=== PATIENT | female | born 1970 | race Hispanic/Latino ===

== ENCOUNTER 2018-05-04 17:53 | Emergency (ER) | payer SELFPAY ==
[~2018-05-04] VITALS: Ht 157.5 cm; Wt 90.7 kg
[2018-05-04] MEDS ORDERED: METOCLOPRAMIDE HCL 10 MG/2ML VIAL IV ONE (18:30)
[2018-05-04] MEDS ORDERED: KETOROLAC TROMETHAMINE 30 MG/ML VIAL IV STA (18:30)
[2018-05-04] MEDS ORDERED: SODIUM CHLORIDE 0.9% 1000ML 1,000 ML IV STA (18:30)
[2018-05-04] MEDS ORDERED: DIPHENHYDRAMINE HCL INJ 50 MG/ML VIAL IV ONE (18:30)
[2018-05-04 19:02] LABS: BASOPHILS % 0.4 % (0.0-1.0); EOSINOPHILS # (AUTO) 0.1 (0.0-0.4); EOSINOPHILS % 1.1 % (0.0-6.0); HEMATOCRIT 38.9 % (34.2-44.1); HEMOGLOBIN 13.3 g/dL (12.0-16.0); LYMPHOCYTES # (AUTO) 2.6 (1.0-3.2); LYMPHOCYTES % 26.1 % (18.0-39.1); MEAN CORPUSCULAR HEMOGLOBIN 30.9 pg (28-32); MEAN CORPUSCULAR HGB CONC 34.2 g/dL (31-35); MEAN CORPUSCULAR VOLUME 90.3 fL (81-99); MONOCYTES # (AUTO) 0.7 (0.2-0.8); MONOCYTES % 6.9 % (4.4-11.3); NEUTROPHILS # (AUTO) 6.6 (2.1-6.9); PLATELET COUNT 300 x10e3/uL (140-360); RED BLOOD COUNT 4.31 x10e6/uL (3.6-5.1); RED CELL DISTRIBUTION WIDTH 13.9 % (11.7-14.4)
[2018-05-04 19:18] LABS: ALANINE AMINOTRANSFERASE 10 IU/L (0-55); ALBUMIN 3.7 g/dL (3.5-5.0); ALBUMIN/GLOBULIN RATIO 1.1 (0.8-2.0); ALKALINE PHOSPHATASE 74 IU/L (40-150); ANION GAP 10.9 mmol/L (8-16); BLOOD UREA NITROGEN 16 mg/dL (7-26); BUN/CREATININE RATIO 22 (6-25); CALCIUM 9.1 mg/dL (8.4-10.2); CARBON DIOXIDE 24 mmol/L (22-29); CHLORIDE 106 mmol/L (98-107); CREATINE KINASE 60 IU/L (29-168); CREATININE, SERUM 0.72 mg/dL (0.57-1.11); EST GLOMERULAR FILTRATION RATE > 60 ML/MIN (60-); GLUCOSE 100 mg/dL (74-118); POTASSIUM 3.9 mmol/L (3.5-5.1); SODIUM 137 mmol/L (136-145)
[2018-05-04 19:34] LABS: BILIRUBIN,URINE NEGATIVE (NEGATIVE); CLARITY,URINE CLEAR (CLEAR); COLOR,URINE YELLOW (YELLOW); KETONES,URINE NEGATIVE (NEGATIVE); LEUKOCYTE ESTERASE ,URINE NEGATIVE (NEGATIVE); NITRITE,URINE NEGATIVE (NEGATIVE); PROTEIN,URINE DIPSTICK NEGATIVE (NEGATIVE); URINE UROBILINOGEN 0.2 mg/dL (0.2 - 1)
[2018-05-04 19:43] LABS: BACTERIA,URINE MANY /HPF; EPITHELIAL CELLS,URINE FEW /LPF; RBC,URINE 0-5 /HPF (0-5)
[2018-05-04] MEDS ORDERED: SODIUM CHLORIDE 0.9% 50ML 0 ML ONE (19:59)
[2018-05-04] MEDS ORDERED: IOPAMIDOL 370 MG/ML 200 ML INFUS..BTL INJ ONE (20:00)
--- NOTE | 2018-05-04 20:01 | Diagnostic Imaging Report ---
EXAMINATION: Head CT without contrast. HISTORY:Migraine headache. COMPARISON:None. TECHNIQUE: Multidetector axial images were obtained from the foramen magnum to the vertex without contrast. The images were reconstructed using brain and bone algorithms. Thin section brain images were reformatted into coronal and sagittal planes. Intravenous contrast: None IMAGE QUALITY: Acceptable. FINDINGS: Skull/scalp: No lytic or blastic. lesions. No surgical changes. Parenchyma: No abnormal density. No acute hemorrhage, mass or acute major vascular territorial infarct. Arteries: No density suggestive of thrombosis. Dural sinuses: No abnormal density suggestive of thrombosis. Ventricles: No hydrocephalus or displacement. Extra-axial spaces: No abnormal density. Brain volume: Normal for age. Craniocervical junction: No mass, Chiari malformation, or basilar invagination. Sella: No mass. Paranasal/mastoid sinuses: Imaged portions unremarkable. IMPRESSION: No intracranial abnormality. Signed by: Dr. Fauzia Patel M.D. on 05/04/2018 7:58 PM
[2018-05-04] MEDS ORDERED: HYDROCODONE/APAP 10MG-325MG TAB PO ONE (20:30)
[2018-05-04] MEDS ORDERED: MORPHINE SULFATE 2 MG/ML SYR IV ONE (20:45)
[2018-05-04] MEDS ORDERED: NIFEDIPINE 10 MG CAP PO STA (21:05)
[2018-05-04] MEDS ORDERED: ESGIC CAPSULE1 EACH PO (21:15)
[2018-05-04 21:18] VITALS: BP 140/84
== END 2018-05-04 21:30 | disposition home or self-care (01) ==
LOC: ER 17:53
DX: G43.019 Migraine without aura, intractable, without status migrainosus (principal); R11.2 Nausea with vomiting, unspecified
CPT/HCPCS: 36415; 70450; 80053; 81001; 82550; 82553; 84484; 84702; 85025; 93005; 96374; 99284; J1200; J1885; J2270; J2765; J7030; Q9967

== ENCOUNTER 2018-10-01 16:10 | Emergency (ER) | payer OTHER ==
[~2018-10-01] VITALS: Ht 157.5 cm; Wt 82.1 kg
[~2018-10-01 16:10] MED LIST: ESGIC CAPSULE1 EACH PO
--- OUTSIDE RECORDS SUMMARY | 2018-10-01 16:13 | XMS REPORT ---
Author Author [facility] Address Unknown Phone Unavailable Care Team Providers Care Dag Sprayer Name Role Phone Sebastian RODRIGUES Unavailable Unavailable Problems This patient has no known problems. Allergies, Adverse Reactions, Alerts This patient has no known allergies or adverse reactions. Medications This patient has no known medications. Results Test Description Test Time Test Comments Text Results Atomic Results Result Comments CT BRAIN WO 2018-05-04 19:53:00 [facility] [address] [id number] Patient Name: ORQUIDEA ALBERTS MR #: [id number] : 1970 Age/Sex: 47/F Req #: [id number] [facility] Physician: Ordered by: MIRIAM CARMONA CODE OFFICIAL Report #: [id number] Location: ER Room/Bed: Procedure: [id number] CT/CT BRAIN WO Exam Date: 05/04/18 Exam Time: 1929 REPORT STATUS: Signed ADDENDUM #1 Dose modulation, iterative reconstruction, and/or weight based adjustment of the mA/kV was utilized to reduce the radiation dose to as low as reasonably achievable. Signed by: Dr. Fauzia Patel M.D. on 06/04/2018 1:56 AM ORIGINAL REPORT EXAMINATION: Head CT without contrast. HISTORY:Migraine headache. COMPARISON:None. TECHNIQUE: Multidetector axial images were obtained from the foramen magnum to the vertex without contrast. The images were reconstructed using brain and bone algorithms. Thin section brain images were reformatted into coronal and sagittal planes. Intravenous contrast: None IMAGE QUALITY: Acceptable. FINDINGS: Skull/scalp: No lytic or blastic. lesions. No surgical changes. Parenchyma: No abnormal density. No acute hemorrhage, mass or acute major vascular territorial infarct. Arteries: No density suggestive of thrombosis. Dural sinuses: No abnormal density suggestive of thrombosis. Ventricles: No hydrocephalus or displacement. Extra-axial spaces: No abnormal density. Brain volume: Normal for age. Craniocervical junction: No mass, Chiari malformation, or basilar invagination. Sella: No mass. Paranasal/mastoid sinuses: Imaged portions unremarkable. IMPRESSION: No intracranial abnormality. Signed by: Dr. Fauzia Patel M.D. on 05/04/2018 7:58 PM Dictated By: FAUZIA PATEL MD [id number] Transcribed By: DRISS on 05/04/181957 COPY TO: MIRIAM CARMONA NP
[2018-10-01] MEDS ORDERED: HYDROCODONE/APAP 10MG-325MG TAB PO NR (17:15)
[2018-10-01] MEDS ORDERED: CYCLOBENZAPRINE HCL 10 MG TAB PO NR (17:15)
[2018-10-01] MEDS ORDERED: DEXAMETHASONE SOD PHOS 10 MG/1 ML VIAL INJ NR (17:15)
[2018-10-01] MEDS ORDERED: KETOROLAC TROMETHAMINE 60 MG/2 ML VIAL IM NR (17:15)
[2018-10-01 18:23] VITALS: BP 158/91
== END 2018-10-01 18:20 | disposition home or self-care (01) ==
LOC: RAD 16:10 → ER 18:20
DX: M54.42 Lumbago with sciatica, left side (principal)
CPT/HCPCS: 99282; J1100; J1885

== ENCOUNTER 2019-06-26 10:43 | Emergency (ER) | payer OTHER ==
[~2019-06-26] VITALS: Ht 157.5 cm; Wt 82.1 kg
--- OUTSIDE RECORDS SUMMARY | 2019-06-26 10:47 | XMS REPORT | CCD ---
Author Author Auto Generated Organization [facility] Address Unknown Phone Unavailable Care Team Providers Care Health Workers Name Role Phone Jaswant Ruggiero CP Allergies, Adverse Reactions, Alerts Substance Reaction Status Vicodin Active Problem List Condition Effective Dates Status Headache Active Medications Medication Instructions Start Date End Date Status Fioricet oral tablet 1 tab, PO, Q4H, PRN, 30 tab, Pain, 10/03/2012 Ordered Substitution Allowed, Maintenance Motrin 800 mg oral 800 mg, 1 tab, PO, Q8H, PRN, Take 10/03/2012 Ordered tablet with food, 30 tab, Pain, Substitution Allowed Take with food Ceftin 500 mg oral 500 mg, 1 tab, PO, BID, 20 tab, 10/03/2012 Ordered tablet Substitution Allowed ketorolac 60 mg, Route: IM, Drug form: INJ, 10/03/2012 10/03/2012 Completed ONCE, Dosing Weight 81.818, kg, Priority: STAT, Start date: 10/03/12 12:48:00, Stop date: 10/03/12 12:48:00 Tetanus-Diphtheria 0.5 ml, Route: IM, ONCE, STAT, 04/07/2010 04/07/2010 Completed Toxoids, Adult Start date: 04/07/10 19:08:00, Stop date: 04/07/10 19:08:00 Immunizations Vaccine Date Status tetanus-diphtheria toxoids 04/07/2010 Auth (Verified) Vital Signs Most recent to oldest [Reference Range]: 1 Height 154.94 cm (10/03/2012 11:55:00) Weight 81.818 kg (10/03/2012 11:55:00)
--- OUTSIDE RECORDS SUMMARY | 2019-06-26 10:47 | XMS REPORT | Summary of Care ---
Author Author [facility] Organization [facility] Address Unknown Phone Unavailable Encounter HQ Jennyferr_karli(FIN) [id number] Date(s): 03/23/19 - 03/23/19 [facility] [address] [place] [phone] Discharge Disposition: Home or Self Care Attending Physician: Collin Romo MD Referring Physician: Collin Romo MD Vital Signs No data available for this section Problem List Condition Effective Dates Status Health Status Informant Headache(Confirmed) Active Allergies, Adverse Reactions, Alerts Substance Reaction Severity Status Vicodin Active Medications No data available for this section Results No data available for this section Immunizations Given and Recorded Vaccine Date Status Refusal Reason tetanus-diphtheria toxoids 04/07/10 Given Procedures No data available for this section Social History No data available for this section Assessment and Plan No data available for this section
--- OUTSIDE RECORDS SUMMARY | 2019-06-26 10:47 | XMS REPORT | Continuity of Care Document ---
Author Author [employer] [facility] Address Unknown Phone Unavailable Care Team Providers Care Assistive Technology Specialist Name Role Phone [facility] Information [place] Unavailable Unavailable Problems Problem Status Onset Date Classification Date Reported Comments Source M25.571 - PAIN IN RIGHT ANKLE AND JOINTS Active 03/23/2019 [facility] COLD,COUGH, HEAD CHEST PAIN, CANT MAMTA Active 10/03/2012 [facility] Headache Active Problem 10/05/2012 [facility] Headache (finding) Active Problem 03/25/2019 [facility] Medications Medication Details Route Status Patient Instructions Ordering Provider Order Date Source Fioricet oral tablet 1 tab, PO, Q4H, PRN, 30 tab, Pain, Substitution Allowed, Maintenance PO Active Vega 10/03/2012 [facility] Motrin 800 mg oral tablet 800 mg, 1 tab, PO, Q8H, PRN, Take with food, 30 tab, Pain, Substitution AllowedTake with food PO Active Vega 10/03/2012 [facility] Ceftin 500 mg oral tablet 500 mg, 1 tab, PO, BID, 20 tab, Substitution Allowed PO Active Vega 10/03/2012 [facility] ketorolac 60 mg, Route: IM, Drug form: INJ, ONCE, Dosing Weight 81.818, kg, Priority: STAT, Start date: 10/03/12 12:48:00, Stop date: 10/03/12 12:48:00 IM No Longer Active Vega 10/03/2012 [facility] Tetanus-Diphtheria Toxoids, Adult 0.5 ml, Route: IM, ONCE, STAT, Start date: 04/07/10 19:08:00, Stop date: 04/07/10 19:08:00 IM No Longer Active Pilar 04/08/2010 [facility] Butalb/Acetaminophen/Caffeine (Esgic Capsule) 1 Each Capsule Every 4 Hours as needed for Headache Active [facility] Allergies, Adverse Reactions, Alerts Substance Category Reaction Severity Reaction type Status Date Reported Comments Source Hydrocodone Unknown Allergy to Substance Active 05/04/2018 [facility] Vicodin Assertion Drug allergy Active [facility] Immunizations Immunization Date Given Site Status Last Updated Comments Source tetanus-diphtheria toxoids 04/08/2010 completed Lm [facility] tetanus-diphtheria toxoids 04/08/2010 Left deltoid completed Lm [facility] Results Order Name Results Value Reference Range Date Interpretation Comments Source Blood leukocytes automated count (number/volume) 10.07 4.8 - 10.8 05/04/2018 [facility] Blood erythrocytes automated count (number/volume) 4.31 3.6 - 5.1 05/04/2018 [facility] Blood hemoglobin measurement (moles/volume) 13.3 12.0 - 16.0 05/04/2018 [facility] Automated blood hematocrit (volume fraction) 38.9 34.2 - 44.1 05/04/2018 [facility] Automated erythrocyte mean corpuscular volume 90.3 81 - 99 05/04/2018 [facility] Automated erythrocyte mean corpuscular hemoglobin (mass per erythrocyte) 30.9 28 - 32 05/04/2018 [facility] Automated erythrocyte mean corpuscular hemoglobin concentration measurement (mass/volume) 34.2 31 - 35 05/04/2018 [facility] RDW BldCo-Rto 13.9 11.7 - 14.4 05/04/2018 [facility] Automated blood platelet count (count/volume) 300 140 - 360 05/04/2018 [facility] Automated blood segmented neutrophil count as percentage of total leukocytes 65.0 38.7 - 80.0 05/04/2018 [facility] Automated blood lymphocyte count as percentage ot total leukocytes 26.1 18.0 - 39.1 05/04/2018 [facility] Automated blood monocyte count as percentage of total leukocytes 6.9 4.4 - 11.3 05/04/2018 [facility] Automated blood eosinophil count as percentage of total leukocytes 1.1 0.0 - 6.0 05/04/2018 [facility] Automated blood basophil count as percentage of total leukocytes 0.4 0.0 - 1.0 05/04/2018 [facility] IM GRANULOCYTES % 0.5 0.0 - 1.0 05/04/2018 [facility] Automated blood neutrophil count 6.6 2.1 - 6.9 05/04/2018 [facility] Blood lymphocytes count (number/volume) 2.6 1.0 - 3.2 05/04/2018 [facility] Blood monocytes automated count (number/volume) 0.7 0.2 - 0.8 05/04/2018 [facility] Automated blood eosinophil count 0.1 0.0 - 0.4 05/04/2018 [facility] Automated blood basophil count (count/volume) 0.0 0.0 - 0.1 05/04/2018 [facility] Absolute Immature Granulocyte (auto 0.05 0 - 0.1 05/04/2018 [facility] Serum or plasma sodium measurement (moles/volume) 137 136 - 145 05/04/2018 [facility] Serum or plasma potassium measurement (moles/volume) 3.9 3.5 - 5.1 05/04/2018 [facility] Serum or plasma chloride measurement (moles/volume) 106 98 - 107 05/04/2018 [facility] Serum or plasma carbon dioxide, total measurement (moles/volume) 24 22 - 29 05/04/2018 [facility] Serum or plasma anion gap 10.9 8 - 16 05/04/2018 [facility] Serum or plasma urea nitrogen measurement (mass/volume) 16 7 - 26 05/04/2018 [facility] Serum or plasma creatinine measurement (mass/volume) 0.72 0.57 - 1.11 05/04/2018 [facility] Serum or plasma urea nitrogen/creatinine mass ratio 22 6 - 25 05/04/2018 [facility] Estimated glomerular filtration rate (GFR) determination > 60 60 05/04/2018 [facility] Glucose measurement 100 74 - 118 05/04/2018 [facility] Serum or plasma calcium measurement (mass/volume) 9.1 8.4 - 10.2 05/04/2018 [facility] Serum or plasma total bilirubin measurement (mass/volume) 0.3 0.2 - 1.2 05/04/2018 [facility] Aspartate Amino Transf (AST/SGOT) 13 5 - 34 05/04/2018 [facility] Serum or plasma alanine aminotransferase measurement (enzymatic activity/volume) 10 0 - 55 05/04/2018 [facility] Serum or plasma protein measurement (mass/volume) 7.0 6.5 - 8.1 05/04/2018 [facility] Serum or plasma albumin measurement (mass/volume) 3.7 3.5 - 5.0 05/04/2018 [facility] Plasma globulin measurement (mass/volume) 3.3 2.3 - 3.5 05/04/2018 [facility] Serum or plasma albumin/globulin mass ratio 1.1 0.8 - 2.0 05/04/2018 [facility] Serum or plasma alkaline phosphatase measurement (enzymatic activity/volume) 74 40 - 150 05/04/2018 [facility] Serum or plasma creatine kinase measurement (enzymatic activity/volume) 60 29 - 168 05/04/2018 [facility] Serum or plasma creatine kinase MB measurement (mass/volume) 0.40 0 - 5.0 05/04/2018 [facility] Troponin I measurement by highly sensitive enzyme immunoassay < 0.001 0 - 0.300 05/04/2018 [facility] Serum or plasma choriogonadotropin ( test) detection NEGATIVE NEGATIVE 05/04/2018 [facility] Urine color determination YELLOW YELLOW 05/04/2018 [facility] Urine clarity CLEAR CLEAR 05/04/2018 [facility] Specific gravity of Urine by Test strip 1.020 1.010 - 1.025 05/04/2018 [facility] Urine pH measurement by automated test strip 6.5 5 - 7 05/04/2018 [facility] Urine leukocyte esterase detection by dipstick NEGATIVE NEGATIVE 05/04/2018 [facility] Urine nitrite detection NEGATIVE NEGATIVE 05/04/2018 [facility] Urine protein measurement by test strip (mass/volume) NEGATIVE NEGATIVE 05/04/2018 [facility] Urine glucose detection NEGATIVE NEGATIVE 05/04/2018 [facility] Urine ketones detection by automated test strip NEGATIVE NEGATIVE 05/04/2018 [facility] Urine urobilinogen measurement by test strip (mass/volume) 0.2 0.2 - 1 05/04/2018 [facility] Urine total bilirubin measurement (mass/volume) NEGATIVE NEGATIVE 05/04/2018 [facility] Urine erythrocytes detection 1+ NEGATIVE 05/04/2018 [facility] Automated urine sediment leukocyte count by microscopy (number/high power field) NONE 0 - 5 05/04/2018 [facility] Erythrocytes detection in urine sediment by light microscopy 0-5 0 - 5 05/04/2018 [facility] Bacteria detection in urine sediment by light microscopy MANY NONE 05/04/2018 [facility] Epithelial cells detection in urine sediment by light microscopy FEW NONE 05/04/2018 [facility] Pathology Reports No Data Provided for This Section Diagnostic Reports Report Value Date Source Foot series DX STUDY: Right Foot series DX, 3 views. Ankle 3 views DX COMPARISON: None HISTORY: - M25.571 Pain in right ankle and joints of right foot; M25.471 Effusion, right ankle;W10.8XXA Fall (on) (from) other stairs and steps, initial encounter; R58 Hemorrhage, not elsewhere classified FINDINGS: Right foot: No acute fracture or subluxation. Small inferior calcaneal bone spur is seen. No soft tissue abnormality is seen. Right ankle: Significant soft tissue swelling overlying the lateral malleolus is seen. A small ossific body is seen adjacent to the distal fibula suggestive of avulsion fracture. The ankle mortise is congruent. IMPRESSION: No acute osseous abnormality in the right foot. Avulsion fracture of the distal fibula with significant overlying soft tissue swelling. 03/23/2019 [facility] Ankle 3 views DX STUDY: Right Foot series DX, 3 views. Ankle 3 views DX COMPARISON: None HISTORY: - M25.571 Pain in right ankle and joints of right foot; M25.471 Effusion, right ankle;W10.8XXA Fall (on) (from) other stairs and steps, initial encounter; R58 Hemorrhage, not elsewhere classified FINDINGS: Right foot: No acute fracture or subluxation. Small inferior calcaneal bone spur is seen. No soft tissue abnormality is seen. Right ankle: Significant soft tissue swelling overlying the lateral malleolus is seen. A small ossific body is seen adjacent to the distal fibula suggestive of avulsion fracture. The ankle mortise is congruent. IMPRESSION: No acute osseous abnormality in the right foot. Avulsion fracture of the distal fibula with significant overlying soft tissue swelling. 03/23/2019 TER[facility] Hyde Consultation Notes No Data Provided for This Section Discharge Summaries No Data Provided for This Section History and Physicals No Data Provided for This Section Vital Signs Vital Sign Value Date Comments Source Height 154.94 cm 10/03/2012 [facility] Weight 81.818 10/03/2012 [facility] Encounters Location Location Details Encounter Type Encounter Number Reason For Visit Attending Provider ADM Date DC Date Status Source [facility] Emergency [id number] CHEN VEGA 10/03/2012 10/03/2012 Discharged [facility] Departed Emergency Room [id number] ALBERTO RODRIGUES MD 05/04/2018 05/04/2018 [facility] Departed Emergency Room [id number] LIDIA KIRK MD 10/01/2018 10/01/2018 [facility] [id number] Collin Romo 03/23/2019 03/24/2019 [facility] Procedures Procedure Code Date Perfomer Comments Source Computed tomography of brain without radiopaque contrast [id number] 05/04/2018 [facility] Assessment and Plan No Data Provided for This Section Plan of Care Plan of Care Date Source Discharge Date 10/01/18 6:20pm Disposition HOME, SELF-CARE Condition at Discharge Stable Instructions/Education Provided Back Pain Sciatica Forms Provided Work/School Excuse Prescriptions See Medication Section Referrals FAIZA SANABRIA Address: [address] [place] [address] ADRIANNA GONZALEZ MD Address: [address] [place] [address] [address] [place] [address] Additional Instructions/Education 1. follow up with orthopedic doctor in 1-2 days without fail 2. return to ed as needed 3. tylenol and motrin as needed 10/01/2018 [facility] Social History Social History Date Source No data available for this section 03/24/2019 [facility] Smoking Status Start Date Stop Date Former smoker 10/01/2018 [facility] Family History No Data Provided for This Section Advance Directives Order Name Results Value Date Source Advance Directives Advance Directives Directive Response Recorded Date/Time Does the patient have an advance directive? No 05/04/18 9:36pm If yes, is advance directive on file with [facility]? No 05/04/18 9:36pm If not on file with [facility] will patient provide a copy? No 05/04/18 9:36pm Do you have a Directive to Physician? No 10/01/18 4:24pm Do you have a Medical Power of Senior Recruitment Consultant? No 10/01/18 4:24pm Do you have an out of hospital Do Not Resuscitate Order? No 10/01/18 4:24pm Do you have any special needs we should be aware of? No 10/01/18 4:24pm Do you have a support person here with you today? Yes 10/01/18 4:55pm Did patient receive Notice of Privacy Practices? Yes 10/01/18 4:55pm Did patient receive patient rights and responsibilities? Yes 10/01/18 4:55pm 10/01/2018 [facility] Functional Status No Data Provided for This Section
[2019-06-26 12:13] LABS: BASOPHILS % 0.3 % (0.0-1.0); EOSINOPHILS # (AUTO) 0.1 (0.0-0.4); EOSINOPHILS % 0.5 % (0.0-6.0); HEMATOCRIT 26.2 % (34.2-44.1); HEMOGLOBIN 7.4 g/dL (12.0-16.0); LYMPHOCYTES # (AUTO) 1.8 (1.0-3.2); LYMPHOCYTES % 14.7 % (18.0-39.1); MEAN CORPUSCULAR HEMOGLOBIN 20.3 pg (28-32); MEAN CORPUSCULAR HGB CONC 28.2 g/dL (31-35); MEAN CORPUSCULAR VOLUME 71.8 fL (81-99); MONOCYTES # (AUTO) 0.9 (0.2-0.8); MONOCYTES % 7.7 % (4.4-11.3); NEUTROPHILS # (AUTO) 9.1 (2.1-6.9); NEUTROPHILS % 76.1 % (38.7-80.0); PLATELET COUNT 417 x10e3/uL (140-360); RED BLOOD COUNT 3.65 x10e6/uL (3.6-5.1); RED CELL DISTRIBUTION WIDTH 19.1 % (11.7-14.4)
[2019-06-26 12:17] LABS: INR 0.9; PROTHROMBIN TIME 12.6 seconds (11.9-14.5)
[2019-06-26 12:18] LABS: PARTIAL THROMBOPLASTIN TIME 25.2 seconds (23.8-35.5)
[2019-06-26 12:22] LABS: CLARITY,URINE CLEAR (CLEAR); COLOR,URINE YELLOW (YELLOW)
[2019-06-26 12:23] LABS: BILIRUBIN,URINE NEGATIVE (NEGATIVE); KETONES,URINE NEGATIVE (NEGATIVE); LEUKOCYTE ESTERASE ,URINE NEGATIVE (NEGATIVE); NITRITE,URINE NEGATIVE (NEGATIVE); PREGNANCY TEST, URINE NEGATIVE (NEGATIVE); PROTEIN,URINE DIPSTICK NEGATIVE (NEGATIVE); URINE UROBILINOGEN 0.2 mg/dL (0.2 - 1)
[2019-06-26 12:24] LABS: BACTERIA,URINE FEW /HPF; RBC,URINE 0-5 /HPF (0-5)
[2019-06-26 12:25] LABS: EPITHELIAL CELLS,URINE FEW /LPF
[2019-06-26 12:28] LABS: ALANINE AMINOTRANSFERASE 11 IU/L (0-55); ALBUMIN 3.9 g/dL (3.5-5.0); ALBUMIN/GLOBULIN RATIO 1.2 (0.8-2.0); ALKALINE PHOSPHATASE 53 IU/L (40-150); ANION GAP 12.7 mmol/L (8-16); BLOOD UREA NITROGEN 7 mg/dL (7-26); BUN/CREATININE RATIO 9 (6-25); CALCIUM 9.7 mg/dL (8.4-10.2); CARBON DIOXIDE 26 mmol/L (22-29); CHLORIDE 106 mmol/L (98-107); CREATINE KINASE 139 IU/L (29-168); CREATININE, SERUM 0.79 mg/dL (0.57-1.11); EST GLOMERULAR FILTRATION RATE > 60 ML/MIN (60-); GLUCOSE 102 mg/dL (74-118); POTASSIUM 3.7 mmol/L (3.5-5.1); SODIUM 141 mmol/L (136-145)
[2019-06-26] MEDS ORDERED: MORPHINE SULFATE 5 MG/ML VIAL IV ONE (12:45)
[2019-06-26] MEDS ORDERED: SODIUM CHLORIDE 0.9% 1000ML 1,000 ML IV SCH (12:45)
[2019-06-26] MEDS ORDERED: SODIUM CHLORIDE 0.9% 1000ML 1,000 ML ONE (12:48)
[2019-06-26] MEDS ORDERED: ONDANSETRON HCL INJ 2MG/ML 2ML 2 MG/ML VIAL IV ONE (13:00)
--- NOTE | 2019-06-26 13:02 | Diagnostic Imaging Report ---
Examination: Head and cervical spine CT without contrast. History: Trauma, pain. Comparison studies: CT head 05/04/2018 Technique: Axial images were obtained from the brain and cervical spine. Coronal and sagittal images reconstructed from the axial data. Dose modulation, iterative reconstruction, and/or weight based adjustment of the mA/kV was utilized to reduce the radiation dose to as low as reasonably achievable. FINDINGS: Head CT: Scalp/skull: No abnormalities. No fractures, blastic or lytic lesions. Brain sulci: Appropriate for age. Ventricles: Normal in size and configuration. No hydrocephalus. Extra-axial spaces: No masses. No fluid collections. Parenchyma: No abnormal densities. No masses, hemorrhage, acute or chronic cortical vascular insults. Sellar/suprasellar region: No abnormalities. Craniocervical junction: Patent foramen magnum. No Chiari one malformation. Incidental findings: Subcentimeter pineal gland cyst. Cervical spine CT: Airway: Patent. Fractures: None. Soft tissues: No gross abnormalities. Atlantoaxial articulation: Intact. Alignment: Reversal of the normal cervical lordosis centered at the 5. There is grade 1 anterior listhesis of C3 on C4 and C4 on C5, likely degenerative. No scoliosis. Cervicomedullary junction: No abnormalities. Patent foramen magnum. Vertebrae: No infection or neoplasm. Degenerative changes: Moderate to severe degenerative disc changes at C5-C6 and C6-C7 with posterior disc osteophyte complexes and uncovertebral hypertrophy contributing to severe bilateral neural foraminal stenosis at C5-C6 and on the left at C6-C7. No osseous compromise of the spinal canal. IMPRESSION: Head CT: No acute abnormalities. Cervical spine CT: 1. No acute osseous abnormalities. 2. Cannot adequately evaluate for ligament, spinal cord and or vascular abnormalities. 3. Degenerative disc changes results in severe bilateral neural foraminal stenosis bilaterally at C5-C6 and on the left C6-C7. No spinal canal stenosis. The images and preliminary report provided by the neuroradiology fellow were reviewed and a final report issued by Dr. Hernandez neuroradiology faculty on 06/26/2019 at 4:41 PM. Signed by: Dr. Malu Baht M.D. on 06/26/2019 4:41 PM
--- NOTE | 2019-06-26 13:17 | Diagnostic Imaging Report ---
EXAM: CT Chest, Abdomen and Pelvis WITH contrast INDICATION: ^TRAUMA PROTOC[place] [facility] [place][id number] ^[id number] COMPARISON: None. TECHNIQUE: Chest, abdomen and pelvis were scanned utilizing a multidetector helical scanner from the lung apex to the ischial tuberosities after administration of IV contrast. Coronal and sagittal reformations were obtained. Trauma protocol was performed. Scan was performed during arterial phase through the chest and early portal venous phase through the abdomen and pelvis. No oral contrast was given. IV CONTRAST: 100 mL of Isovue-370 ORAL CONTRAST: None RADIATION DOSE: Total DLP: 720 mGy*cm Estimated effective dose: DLP x 0.015 mSv COMPLICATIONS: None FINDINGS: LINES and TUBES: None. LUNGS AND AIRWAYS: Mild linear scarring in the left lower lobe, otherwise, lungs and airways are unremarkable. PLEURA: The pleural spaces are clear. HEART AND MEDIASTINUM: The thyroid gland is normal. No mediastinal, hilar or axillary lymphadenopathy. The heart is normal in size. There is no pericardial effusion. The thoracic aorta and pulmonary arteries are unremarkable. No mediastinal hematoma. HEPATOBILIARY: 9 mm right hepatic cyst. No lacerations. No biliary ductal dilation. GALLBLADDER: Subcentimeter calcified gallstone. No wall thickening. SPLEEN: No splenomegaly. PANCREAS: No focal masses or ductal dilatation. ADRENALS: No adrenal nodules KIDNEYS/URETERS: Kidneys enhance symmetrically. No hydronephrosis. No cystic or solid mass lesions. 2 mm nonobstructing calcified stones in the lower pole of the left kidney on series 2, images 60 and 65. Additional 2 mm stone is noted in the upper pole of the right kidney on series 2, image 56. GI TRACT: No abnormal distention, wall thickening, or evidence of bowel obstruction. Appendectomy. PELVIC ORGANS/BLADDER: Unremarkable. LYMPH NODES: No lymphadenopathy. VESSELS: Unremarkable. PERITONEUM / RETROPERITONEUM: No free air or fluid. BONES: Well-circumscribed sclerotic lesion in the left sacrum on series 2, image 94, likely a bone island. No acute bony abnormalities. SOFT TISSUES: Unremarkable. IMPRESSION: 1. No acute posttraumatic abnormalities in the chest, abdomen, or pelvis. 2. Cholelithiasis. 3. Bilateral nonobstructing nephrolithiasis. Signed by: Dr. Nemo Martins M.D. on 06/26/2019 1:14 PM
[2019-06-26] MEDS ORDERED: ULTRAM50 MG PO (13:57)
[2019-06-26] MEDS ORDERED: CYCLOBENZAPRINE5 MG PO (13:57)
[2019-06-26] MEDS ORDERED: MORPHINE SULFATE 2 MG/ML SYR 1ML IV ONE (14:00)
[2019-06-26] MEDS ORDERED: SODIUM CHLORIDE 0.9% 50ML 50 ML ONE (18:17)
[2019-06-26] MEDS ORDERED: IOPAMIDOL 370 MG/ML 200 ML INFUS..BTL INJ ONE (18:17)
== END 2019-06-26 14:17 | disposition home or self-care (01) ==
LOC: ER 10:43
DX: S20.219A Contusion of unspecified front wall of thorax, initial encounter (principal); S20.319A Abrasion of unspecified front wall of thorax, initial encounter; S30.1XXA Contusion of abdominal wall, initial encounter; S30.811A Abrasion of abdominal wall, initial encounter; V29.9XXA Motorcycle rider (driver) (passenger) injured in unspecified traffic accident, initial encounter; Y92.410 Unspecified street and highway as the place of occurrence of the external cause
CPT/HCPCS: 36415; 70450; 71260; 72125; 74177; 80053; 81001; 81025; 82550; 82553; 84484; 85025; 85610; 85730; 87086; 93005; 99284; J2270; J2405; J7030; Q9967